=== PATIENT | male | born 1990 | race Caucasian/White ===

== ENCOUNTER 2016-12-06 23:30 | Emergency (ER) | payer SELFPAY ==
--- NOTE | 2016-12-06 23:34 | ED Physician Chart ---
Chief Complaint/HPI - Patient Information Date Seen:: 12/06/16 Time Seen:: 23:34 Chief Complaint:: numbness History of Present Illness:: 26-year-old male brought in by EMS with acute, constant, severe, whole body numbness that started about 20 minutes prior to arrival after he drank coffee at work. Has associated severe anxiety. Denies nausea, vomiting, trauma, pain , palpitations, headache, acute vision changes, fevers. Historian:: Patient, EMS Review:: Nurse's Note Reviewed, EMS run form Reviewed Review of Systems - Review of Systems Other: Complete system review otherwise unremarkable except as noted in history of present illness. Past Medical History - Past Medical History Past Medical History: No significant medical hx Family History: None Social History: Non Smoker, No Alcohol, No Drug Use, Employed Surgical History: None Psychiatricy History: None Medication: None Family Medical History - Family Member Mother History Unknown: Yes Ethnicity: Physical Exam - Physical Examination Other:: INITIAL VITAL SIGNS: Reviewed by me GENERAL: Alert and interactive. Severely distressed due to what looks like anxiety HEAD: Head is normocephalic and atraumatic EYES: EOMI. PERRL. No scleral icterus. No conjunctival injection ENT: Moist mucous membranes. NECK: Supple. No masses. Full range of motion RESPIRATORY: Slight tachypnea. Clear breath sounds bilaterally. No wheezing, rales, or rhonchi CV: Tachycardic. No murmurs, rubs, or gallops ABDOMEN: Soft, non-distended, non-tender. No guarding. No rebound. No masses. EXTREMITIES: No deformity. No cyanosis. No edema. SKIN: Warm and dry. No obvious rashes. NEUROLOGIC: Alert and oriented. Face is symmetric. Speech is normal. Moves all extremities equally. Motor and sensory distally intact. Labs/Radiology/EKG Results - Lab Results Results: Lab Results 12/06/16 12/06/16 12/06/16 Range/Units 00:01 00:01 00:01 WBC 8.0 (4.8-10.8) Th/cmm RBC 5.21 (4.30-5.70) Mil/cmm Hgb 15.6 (13.2-17.3) gm/dL Hct 46.0 (39.0-49.0) % MCV 88.3 (80-99) fl MCH 30.0 (26.0-30.0) pg MCHC Differential 34.0 (28.0-36.0) pg RDW 12.3 (11.5-20.0) % Plt Count 256 (150-400) Th/cmm MPV 8.6 fl Neutrophils % 61.2 (40.0-80.0) % Lymphocytes % 32.6 (20.0-50.0) % Monocytes % 4.7 (2.0-10.0) % Eosinophils % 1.5 (0.0-5.0) % Basophils % 0.0 (0.0-2.0) % Sodium 136 (136-145) mEq/L Potassium 3.1 L (3.5-5.1) mEq/L Chloride 105 (98-107) mEq/L Carbon Dioxide 19.1 L (21.0-31.0) mEq/L Anion Gap 15.0 (7.0-16.0) BUN 13 (7-25) mg/dL Creatinine 1.0 (0.7-1.3) mg/dL Est GFR ( Amer) > 60.0 (>90) ml/min Est GFR (Non-Af Amer) > 60.0 ml/min BUN/Creatinine Ratio 13.0 Glucose 131 H (70-105) mg/dL Calcium 9.9 (8.6-10.3) mg/dL Total Bilirubin 0.4 (0.3-1.0) mg/dL AST 24 (13-39) U/L ALT 31 (7-52) U/L Alkaline Phosphatase 80 (34-104) U/L Troponin I 0.01 (0.01-0.05) ng/mL Total Protein 7.3 (6.0-8.3) gm/dL Albumin 4.2 (4.2-5.5) gm/dL Globulin 3.1 gm/dL Albumin/Globulin Ratio 1.4 (1.0-1.8) - EKG Interpretations Comments:: 12-lead EKG Interpretation by Butch Nieves MD: Normal Sinus Rhythm with ventricular rate of 87 beats per minute Normal axis Normal intervals No acute ST or T wave changes. No obvious STEMI ED Septic Shock - . Is Septic Shock (SBP<90, OR Lactate>4 mmol\L) present?: No Reassessment (Disposition) - Reassessment Reassessment:: Patient arrived in severe body numbness after drinking coffee. Associated severe anxiety. Patient received IV Ativan and IV normal saline. Immediately symptoms had resolved. Patient also had low potassium and labs otherwise labs are unremarkable. Replace potassium with oral potassium. Symptoms were totally resolved and reevaluation. Patient was alert and oriented 4. Patient was able to walk without any gait abnormalities. Recommend follow-up with PCP 1 -2 days. Return to ER precautions given. Patient says he understands and agrees with plan. Blood pressure was noted to be elevated over 120/80. There were no signs of hypertension. Discussed the findings with the patient and recommended that the patient follow up with the primary care physician regarding the elevated blood pressure. Reassessment Condition:: Improved - Diagnosis Diagnosis:: Acute altered body numbness due to acute anxiety attack Elevated blood pressure without diagnosis of hypertension - Aftercare/Follow up Instructions Aftercare/Follow-Up Instructions:: Counseled pt regarding lab results/diagnosis & need follow up, Refer to Discharge Instructions - Patient Disposition Discharge/Transfer:: Home Time:: 01:46 Condition at Disposition:: Improved ED Discharge Plan - Patient Disposition Admit/Discharge/Transfer: PT DISCHARGED HOME Condition at Disposition: Improved Instructions: Anxiety and Panic Attacks, [id number] Additional Instructions: FOLLOW UP WITH YOUR DOCTOR IN 2-3 DAYS AND TO COME BACK TO ER IF SYMPTOMS WORSEN Forms: Work Release Form
[2016-12-07 00:19] LABS: % EOSINOPHILS 1.5 % (0.0-5.0); % LYMPHOCYTES 32.6 % (20.0-50.0); % MONOCYTES 4.7 % (2.0-10.0); % NEUTROPHILS 61.2 % (40.0-80.0); HEMOGLOBIN 15.6 gm/dL (13.2-17.3); MEAN CELL VOLUME 88.3 fl (80-99); MEAN PLATELET VOLUME 8.6 fl; NEUTROPHILE ABSOLUTE 4.9 Th/cmm (1.8-8.0); PLATELET COUNT 256 Th/cmm (150-400); RED BLOOD COUNT 5.21 Mil/cmm (4.30-5.70); RED CELL DISTRIBUTION WIDTH 12.3 % (11.5-20.0)
[2016-12-07 00:35] LABS: ALB/GLOB RATIO 1.4 (1.0-1.8); ALKALINE PHOSPHATASE 80 U/L (34-104); BILIRUBIN,TOTAL 0.4 mg/dL (0.3-1.0); BUN - UREA NITROGEN 13 mg/dL (7-25); CALCIUM SERUM 9.9 mg/dL (8.6-10.3); CARBON DIOXIDE 19.1 mEq/L (21.0-31.0); CHLORIDE 105 mEq/L (98-107); GLUCOSE 131 mg/dL (70-105); POTASSIUM SERUM 3.1 mEq/L (3.5-5.1); SGOT 24 U/L (13-39); SGPT/ALT 31 U/L (7-52); SODIUM SERUM 136 mEq/L (136-145)
[2016-12-07] MEDS ORDERED: Potassium Chloride 20 mEq ER Tab PO ONE ×2 (00:46→00:59)
[2016-12-07] MEDS ORDERED: Sodium Chloride 0.9% 500 ML IV ONE (00:51)
== END 2016-12-07 01:58 | disposition home or self-care (01) ==
LOC: ER 23:30
DX: R20.0 Anesthesia of skin (principal); F41.9 Anxiety disorder, unspecified; R03.0 Elevated blood-pressure reading, without diagnosis of hypertension
CPT/HCPCS: 99285; 96374; 93005; 84484; 36415; 85025; 80053; J2060